=== PATIENT | female | born 1935 | race Caucasian/White ===

== ENCOUNTER → 2017-07-27 | Emergency (ER) | payer OTHER ==
[~2017-07-27] VITALS: Ht 157.5 cm; Wt 72.6 kg
[~2017-07-27] MED LIST: ALENDRONAT70 MG/75 M; AMLODIPINE BESY10 MG; ASPIRIN81 MG; ATORVASTATIN CA40 MG; COZAAR50 MG; DORZOLAMIDE-TIM10 ML; EFFER-K 10 MEQ10 MEQ; HYDRALAZINE HCL50 MG; OMEPRAZOLE20 MG; PAROXETINE HCL40 MG; TRIAMTERENE-HC1 EAC3
== END | disposition home or self-care (01) ==
LOC: ER 10:30
DX: R51 Headache (principal)